=== PATIENT | male | born 1990 | race Caucasian/White ===

== ENCOUNTER 2017-03-10 00:21 | Emergency (ER) | payer OTHER ==
--- NOTE | ~2017-03-10 | ER ---
PATIENT'S NAME: STAR HASKINS [facility] AGE: 26 Y [address] ROOM: [place] [address] LOCATION: ED ADMIT DATE: 03/10/2017 ER/Outpatient Report DISCHARGE DATE: 03/10/2017 FAMILY PHYSICIAN: Krishna Ramos MD ATTENDING PHYSICIAN: Jesus Machuca CHIEF COMPLAINT: Palpitations. HISTORY OF PRESENT ILLNESS: The patient started having palpitations about 10:45 last night. It included some sweating on the forehead and general unsettledness. He denies any other issues. He denies confusion, difficulty forming thoughts, weakness, tremor, shaking, or other concerning symptoms. Two days ago, he started Zoloft, prescription from Dr. Ramos for depression and anxiety. He was told to come in for evaluation if he felt like his heart was racing. The patient otherwise takes thyroid replacement medication and denies any recent changes in same. PAST MEDICAL HISTORY: Documented on the record and reviewed by me. SOCIAL HISTORY: Documented on the record and reviewed by me. MEDICATIONS: Documented on the record and reviewed by me. ALLERGIES: DOCUMENTED ON THE RECORD AND REVIEWED BY ME. REVIEW OF SYSTEMS: All systems are reviewed and negative except as noted in the HPI. PHYSICAL EXAMINATION: VITAL SIGNS: Blood pressure 155/92, pulse is 92, respiratory rate is 18, temperature 98.5, SpO2 is 92% on room air. Pain is zero. GENERAL: An age-appropriate male, in no obvious pain or distress, sitting upright on the exam table. NEURO: The patient is awake and alert. GCS is 15. There is no appreciable tremor on exam. There is no inducible clonus with reflex testing. The patient has brisk appropriate reflexes of the biceps, brachioradialis, patellar, and Achilles bilaterally. No clonus. Eyes are without clonus as well. There is no rigidity. He has had no vomiting. HEENT: Normocephalic, atraumatic. Eyes are PERRL. Oropharynx is clear. PATIENT'S NAME: STAR HASKINS [facility] AGE: 26 Y [address] ROOM: [place] [address] LOCATION: ED ADMIT DATE: 03/10/2017 ER/Outpatient Report DISCHARGE DATE: 03/10/2017 FAMILY PHYSICIAN: Krishna Ramos MD ATTENDING PHYSICIAN: Jesus Machuca NECK: Supple. Trachea is midline. CHEST: Heart is regular rate and rhythm with no murmurs. LUNGS: Clear to auscultation bilateral with no rhonchi, wheezes, or rales. ABDOMEN: Soft, nontender, and nondistended. No rebound or guarding. BACK: Back is normal to inspection and palpation. No CVA tenderness. EXTREMITIES: Warm and well perfused. No obvious deformities or edema. SKIN: Clean, dry, and intact. No flushing. No diaphoresis. LABORATORY DATA AND X-RAYS: None. IMPRESSION: Possible medication side effects of Zoloft versus panic attack. EMERGENCY DEPARTMENT COURSE: The patient was seen and evaluated. Because he recently started Zoloft, there was mild concern for possible serotonin syndrome. The patient does not have any evidence of autonomic instability. He also has no evidence of hyperreflexia or other [employer] abnormality. His vital signs are within normal limits. After an hour of observation, heart rate had actually improved. He was having no further symptoms. His presentation is not consistent with acute coronary syndrome, atrial fibrillation, or other concerning presentations such as that. We will have him follow up with Dr. Ramos in the morning for re- evaluation. I am recommending that he do not take his Zoloft until he touches base with Dr. Ramos for further recommendations. The patient was in agreement. He was discharged in good condition. MD ANA KAMARA/caseyl /[id number] d: 03/11/17 0057 t: 03/15/17 1002, OUTPATIENT REPORT
== END 2017-03-10 01:26 | disposition disaster alternative care site (69) ==
LOC: GMED 00:21
DX: R00.2 Palpitations (principal); F32.9 Major depressive disorder, single episode, unspecified; F41.9 Anxiety disorder, unspecified; E03.9 Hypothyroidism, unspecified; F17.210 Nicotine dependence, cigarettes, uncomplicated; Z79.899 Other long term (current) drug therapy